=== PATIENT | female | born 1985 | race Caucasian/White ===

== ENCOUNTER 2022-02-04 19:52 | Emergency (ER) | payer OTHER, MEDICAID ==
[~2022-02-04] VITALS: Ht 167.6 cm; Wt 81.6 kg
[2022-02-04 20:00] VITALS: BP_SYST 110
[2022-02-04] MEDS ORDERED: HALOPERIDOL LACTATE 5 MG/ML VIAL IVP ONE (20:15)
[2022-02-04] MEDS ORDERED: DIPHENHYDRAMINE INJ 50 MG/ML VIAL IVP ONE (20:15)
[2022-02-04] MEDS ORDERED: LORazepam 2 MG/ML VIAL IVP ONE (20:15)
--- NOTE | 2022-02-04 20:20 | NUR ---
REPORT GIVEN TO VALERY ALAS
--- NOTE | 2022-02-04 20:20 | NUR ---
Placed in room 05 . Placed on traffic monitor specialist, blood pressure machine and pulse oximeter. To gown for exam. Side rails up. Report given to VALERY ALAS
--- NOTE | 2022-02-04 20:21 | NUR ---
PATIENT BROUGHT IN FROM ALS FROM HOME. PER EMS, PATIENT HAD 2 WITNESSED SEIZURES BEFORE ARRIVAL OF MEDICS. REPORTED THAT PATIENT HAS SEIZURES AFTER DRINKING ALCOHOL. THEY HAD JUST ARRIVED HOME FROM A [employer]. PATIENT IS NOT ON ANY SEIZURE MEDICATIONS AND REPORTS THAT KEPPRA CAUSES HER TO HAVE NIGHTMARES. PATIENT HAD PSEUDOSEIZURE IN ROUTE WITH NO POSTICTAL PERIOD. PATIENT ARRIVES IN ED YELLING, SCREAMING AND THRASHING HER BODY ON EMS GURNEY. PATIENT WAS PLACED IN 4 POINT RESTRAINTS AT THIS TIME BY EMS TO PREVENT PATIENT FROM FALLING. PATIENT IS AOX2, ORIENTED TO NAME AND PLACE. UNABLE TO REDIRECT PATIENT AND CURSING YELLING "YOU FUCKING BITCH". PATIENT NOT ABLE TO ANSWER ANY QUESTIONS APPROPRIATELY. PATIENT ARRIVES WITH 20G TO LEFT HAND. VSS
[2022-02-04 20:41] LABS: BASOPHILS # (AUTO) 0.1 K/uL (0.0-0.2); BASOPHILS % (AUTO) 1.3 % (0.0-2.0); EOSINOPHILS # (AUTO) 0.2 K/uL (0.0-0.4); EOSINOPHILS % (AUTO) 2.5 % (0.0-4.0); HEMATOCRIT 41.6 % (36-48); HEMOGLOBIN 14.5 g/dL (12.0-16.0); LYMPHOCYTES # (AUTO) 2.6 K/uL (1.0-5.5); LYMPHOCYTES % (AUTO) 33.4 % (20.5-51.5); MEAN CORPUSCULAR HEMOGLOBIN 32 pg (27-31); MEAN CORPUSCULAR HGB CONC 35 % (32-36); MEAN CORPUSCULAR VOLUME 93 fL (79.0-98.0); MONOCYTES # (AUTO) 0.4 K/uL (0.0-1.0); MONOCYTES % (AUTO) 5.5 % (1.7-9.3); NEUTROPHILS # (AUTO) 4.5 K/uL (1.8-7.7); NEUTROPHILS % (AUTO) 57.3 % (40.0-70.0); PLATELET COUNT (AUTO) 275 K/uL (130-430); RED BLOOD CELL COUNT(AUTO) 4.48 MIL/uL (4.2-6.2); RED CELL DISTRIBUTION WIDTH 13.5 % (9.0-15.0); WHITE BLOOD COUNT (AUTO) 7.9 K/uL (4.8-10.8)
[2022-02-04 20:48] LABS: ANION GAP 8 (5-15); CHLORIDE 107 mmol/L (98-107); CREATININE 1.11 mg/dL (0.55-1.30); GLUCOSE 102 mg/dL (70-99); POTASSIUM 3.8 mmol/L (3.5-5.1); UREA NITROGEN, BLOOD 11 mg/dL (8-21)
[2022-02-04 20:51] LABS: GFR AFRICAN AMERICAN 72 mL/min (>90)
[2022-02-04 20:54] LABS: ACETAMINOPHEN < 1 ug/mL (1-30); ALANINE AMINOTRANSFERASE 63 U/L (12-78); ALBUMIN 4.2 g/dL (3.4-4.8); ALCOHOL, BLOOD 223 mg/dL (<10); ASPARTATE AMINOTRANSFERASE 125 U/L (10-37); TOTAL BILIRUBIN 0.1 mg/dL (0.0-1.0)
--- NOTE | 2022-02-04 20:58 | NUR ---
COVID SAMPLE COLLECTED AND SENT TO LAB
--- NOTE | 2022-02-04 21:06 | NUR ---
# 16 FR In and Out catheter with use of sterile technique. Immediate return of 300 ml CLEAR YELLOW urine noted. Urine sample collected and sent to lab. Pt tolerated procedure WELL Patient unable to toilet self.
[2022-02-04 21:17] LABS: BILIRUBIN,URINE NEGATIVE (NEGATIVE); BLOOD, URINE 1+ (NEGATIVE); CLARITY/URINE CLEAR (CLEAR); COLOR,URINE YELLOW (YELLOW); GLUCOSE,URINE NEGATIVE (NEGATIVE); KETONES,URINE NEGATIVE (NEGATIVE); LEUKOCYTE ESTERASE ,URINE NEGATIVE (NEGATIVE); NITRITE, URINE NEGATIVE (NEGATIVE); PH,URINE 5.5 (5.0-8.0); PROTEIN URINE NEGATIVE (NEGATIVE); UROBILINOGEN,URINE 0.2 (0.2-1.0)
[2022-02-04 21:25] LABS: BACTERIA,URINE None Seen /HPF (None Seen); MUCUS,URINE None Seen /LPF (None Seen); RBC,URINE NONE SEEN /HPF (0-3); WBC,URINE 0-3 /HPF (0-3)
[2022-02-04 21:28] LABS: BARBITURATE, URINE NEGATIVE (NEG <=200); BENZODIAZEPINE, URINE NEGATIVE (NEG <=150); CANNABINOID, URINE NEGATIVE (NEG <=50); COCAINE, URINE NEGATIVE (NEG <=150); METHAMPHETAMINES SCREEN,URINE NEGATIVE (NEG <=500); OPIATE, URINE NEGATIVE (NEG <=100); PHENCYCLIDINE SCREEN,URINE NEGATIVE (NEG <=25); UR TRICYCLIC ANTIDEPRESSANTS NEGATIVE (NEG <=300); URINE AMPHETAMINE NEGATIVE (NEG <=500); URINE METHADONE NEGATIVE (NEG <=200); URINE OXYCODONE SCREEN NEGATIVE (NEG <=100); URINE PROPOXYPHENE SCREEN NEGATIVE (NEG <=300)
[2022-02-04] MEDS ORDERED: NACL 0.9% 1,000 ML IV ONE (22:15)
--- NOTE | 2022-02-05 02:05 | NUR ---
PATIENT AMBULATED WITH STEADY GAIT. NOTIFIED
[2022-02-05 02:55] VITALS: BP_SYST 128
== END 2022-02-05 02:55 | disposition home or self-care (01) ==
LOC: SED 19:52
DX: R56.9 Unspecified convulsions (principal); F10.129 Alcohol abuse with intoxication, unspecified; Z79.899 Other long term (current) drug therapy; Z20.822 Contact with and (suspected) exposure to COVID-19; Y90.6 Blood alcohol level of 120-199 mg/100 ml
CPT/HCPCS: 99291; 96374; 96375; 96361; 87426; 80307; 80053; 85025; 36415; 81025; 81000; G0482; J1200; J1630; J2060; J7030; G0480; G0481